=== PATIENT | female | born 1970 | race Two or more races ===

== ENCOUNTER → 2022-02-07 | Outpatient (CLI) | payer OTHER ==
[2022-02-07 17:08] LABS: Free Thyroxine 1.4 ng/dL (0.70-1.60); Thyroid Stimulating Hormone 0.06 uIU/mL (0.360-4.800); Triiodothyronine, Free 2.88 pg/mL (2.18-3.98)
== END | disposition home or self-care (01) ==
LOC: LAB SHORT 11:25
PROVIDERS: Hospitalist
DX: E03.9 Hypothyroidism, unspecified (principal)
CPT/HCPCS: 84439; 84443; 84481

== ENCOUNTER 2022-03-25 09:13 | Day surgery (SDC) | payer OTHER ==
[~2022-03-25] VITALS: Ht 157.5 cm; Wt 61.8 kg
[2022-03-25] MEDS ORDERED: SYMBICORT 160-4.6 GM (09:50)
[2022-03-25] MEDS ORDERED: EUTHYROX125 MCG PO (09:50)
== END 2022-03-25 11:45 | disposition home or self-care (01) ==
LOC: ORSCSDS 09:13
PROVIDERS: Internal Medicine Gastroenterology
PROC: 0DBP8ZX Excision of Rectum, Via Natural or Artificial Opening Endoscopic, Diagnostic (ICD-10-PCS; principal; 2022-03-25 10:45)
DX: Z12.11 Encounter for screening for malignant neoplasm of colon (principal); K62.1 Rectal polyp; Z79.899 Other long term (current) drug therapy
CPT/HCPCS: 88305; J2704; J7120

== ENCOUNTER → 2023-01-20 | Outpatient (CLI) | payer OTHER ==
[~2023-01-20] MED LIST: EUTHYROX125 MCG PO; SYMBICORT 160-4.6 GM
[2023-01-20 19:47] LABS: Free Thyroxine 1.18 ng/dL (0.70-1.60); Thyroid Stimulating Hormone 0.575 uIU/mL (0.360-4.800)
== END ==
LOC: LAB 15:40 → LAB SHORT 15:40
PROVIDERS: Hospitalist
DX: E03.9 Hypothyroidism, unspecified (principal)
CPT/HCPCS: 84439; 84443

== ENCOUNTER → 2024-06-02 | Outpatient (CLI) | payer OTHER ==
[2024-06-02 19:23] LABS: Free Thyroxine 1.36 ng/dL (0.70-1.60); Magnesium, Blood 2.5 mg/dL (1.6-2.4)
[2024-06-02 19:31] LABS: Bun/Creatinine Ratio 19.6 (12.0-20.0); Calcium, Blood 9.4 mg/dL (8.5-10.1); Creatinine, Blood 0.82 mg/dL (0.40-1.00); Potassium, Blood 4.2 mmol/L (3.5-5.5); Thyroid Stimulating Hormone 0.169 uIU/mL (0.360-4.800)
== END ==
LOC: LAB SHORT 17:15 → LAB 17:15
PROVIDERS: Hospitalist
DX: E03.9 Hypothyroidism, unspecified (principal); R25.2 Cramp and spasm
CPT/HCPCS: 80048; 83735; 84439; 84443